=== PATIENT | male | born 1950 | race Caucasian/White ===

== ENCOUNTER → 2017-08-28 08:39 | Outpatient (CLI) | payer MEDICARE, SELFPAY ==
[2017-08-28 10:03] LABS: Hemoglobin 16.2 g/dl (13.0-16.5); Mean Corp Hgb Conc 33.1 g/gl (32-36); Mean Corpuscular Hgb 32.7 pg (27.0-32.0); Mean Corpuscular Volume 98.8 fL (80-94); Mean Platelet Vol. 11.1 fl (6.2-12.0); Platelet Count 200 K/mm3 (150-450); RBC Distribution Width CV 12.7 % (11.6-14.6); RBC Distribution Width SD 46.1 fl (35.1-43.9); Red Blood Count 4.96 M/mm3 (4.6-6.2); White Blood Count 6.1 K/mm3 (4.4-11.0)
[2017-08-28 10:11] LABS: Scan Indicated on CBC? Y/N NO
[2017-08-28 10:15] LABS: Anion Gap 8 (5-15); BUN 18 mg/dL (7-18); BUN/Creat Ratio 12.2 RATIO (10-20); Calcium,Total 8.9 mg/dL (8.5-10.1); Chloride 109 mmol/L (98-107); Creatinine, Serum 1.47 mg/dL (0.70-1.30); EST Glomerular Filtration Rate 50 mL/min (>60); Est Glom Filt Rate - Afr Amer 61 mL/min (>60); Glucose 95 mg/dL (74-106); Sodium Level 141 mmol/L (136-145); Thyroid Stim Hormone (TSH) 1.67 uIU/mL (0.358-3.74)
== END ==
PROVIDERS: Family Provider Family Medicine; PCP Family Medicine; Visit Provider Family Medicine
DX: I10 Essential (primary) hypertension (principal); R60.0 Localized edema
CPT/HCPCS: 36415; 80048; 84443; 85027

== ENCOUNTER → 2017-12-25 09:40 | Outpatient (CLI) | payer MEDICARE, SELFPAY ==
[2017-12-25 12:18] LABS: Anion Gap 10 (5-15); BUN 19 mg/dL (7-18); BUN/Creat Ratio 12.1 RATIO (10-20); Calcium,Total 9.1 mg/dL (8.5-10.1); Chloride 107 mmol/L (98-107); Creatinine, Serum 1.57 mg/dL (0.70-1.30); EST Glomerular Filtration Rate 47 mL/min (>60); Est Glom Filt Rate - Afr Amer 57 mL/min (>60); Glucose 90 mg/dL (74-106); Potassium 3.9 mmol/L (3.5-5.1); Sodium Level 142 mmol/L (136-145)
== END ==
PROVIDERS: Family Provider Family Medicine; PCP Family Medicine; Visit Provider Family Medicine
DX: I10 Essential (primary) hypertension (principal)
CPT/HCPCS: 36415; 80048

== ENCOUNTER → 2018-05-14 10:09 | Outpatient (CLI) | payer MEDICARE, SELFPAY ==
[2018-05-14 12:21] LABS: ALB/GLOB Ratio 1.4 RATIO (0.9-2.4); AST(SGOT) 21 U/L (15-37); Alanine Aminotransfer ALT/SGPT 32 U/L (16-61); Albumin, Serum 4.2 g/dL (3.2-5.0); Alkaline Phosphatase 51 U/L (45-117); Anion Gap 10 (5-15); BUN 19 mg/dL (7-18); BUN/Creat Ratio 12.5 RATIO (10-20); Calcium,Total 8.9 mg/dL (8.5-10.1); Chloride 107 mmol/L (98-107); Creatinine, Serum 1.52 mg/dL (0.70-1.30); EST Glomerular Filtration Rate 48 mL/min (>60); Est Glom Filt Rate - Afr Amer 59 mL/min (>60); Globulin 3.1 g/dL (2.2-4.2); Glucose 94 mg/dL (74-106); PSA,Total- Diagnostic 1.59 ng/mL (0.0-4.0); Potassium 4.3 mmol/L (3.5-5.1); Protein, Total 7.3 g/dL (6.4-8.2); Sodium Level 140 mmol/L (136-145)
== END ==
PROVIDERS: Family Provider Family Medicine; PCP Family Medicine; Visit Provider Family Medicine
DX: I10 Essential (primary) hypertension (principal); Z12.5 Encounter for screening for malignant neoplasm of prostate
CPT/HCPCS: 36415; 80053; 84153

== ENCOUNTER → 2018-09-15 | Outpatient (CLI) | payer MEDICARE, SELFPAY ==
[2018-09-15 13:00] LABS: Anion Gap 5 (5-15); BUN 18 mg/dL (7-18); BUN/Creat Ratio 12.2 RATIO (10-20); Calcium,Total 8.8 mg/dL (8.5-10.1); Chloride 109 mmol/L (98-107); Cholesterol 145 mg/dL (200); Creatinine, Serum 1.47 mg/dL (0.70-1.30); EST Glomerular Filtration Rate 50 mL/min (>60); Est Glom Filt Rate - Afr Amer 61 mL/min (>60); Glucose 91 mg/dL (74-106); High Density Lipoprotein 45 mg/dL; Potassium 4.1 mmol/L (3.5-5.1); Sodium Level 139 mmol/L (136-145); Triglycerides 93 mg/dL; Very Low Density Lipoprotein 19 mg/dL (5-40)
== END | disposition home or self-care (01) ==
PROVIDERS: Family Provider Family Medicine; PCP Family Medicine; Referring Provider Family Medicine; Visit Provider Family Medicine
DX: E78.2 Mixed hyperlipidemia (principal); N18.9 Chronic kidney disease, unspecified
CPT/HCPCS: 36415; 80048; 80061

== ENCOUNTER → 2019-01-12 | Outpatient (CLI) | payer MEDICARE, SELFPAY ==
[2019-01-12 12:40] LABS: Anion Gap 7 (5-15); BUN 17 mg/dL (7-18); BUN/Creat Ratio 10.8 RATIO (10-20); Calcium,Total 9.4 mg/dL (8.5-10.1); Chloride 110 mmol/L (98-107); Creatinine, Serum 1.57 mg/dL (0.70-1.30); EST Glomerular Filtration Rate 47 mL/min (>60); Est Glom Filt Rate - Afr Amer 56 mL/min (>60); Glucose 105 mg/dL (74-106); Potassium 4.3 mmol/L (3.5-5.1); Sodium Level 142 mmol/L (136-145)
== END | disposition home or self-care (01) ==
LOC: MFPLAB 10:36
PROVIDERS: Family Provider Family Medicine; PCP Family Medicine; Referring Provider Family Medicine; Visit Provider Family Medicine
DX: I10 Essential (primary) hypertension (principal)
CPT/HCPCS: 36415; 80048

== ENCOUNTER → 2019-05-18 10:54 | Outpatient (CLI) | payer MEDICARE, SELFPAY ==
[2019-05-18 12:48] LABS: Anion Gap 3 (5-15); BUN 19 mg/dL (7-18); BUN/Creat Ratio 12.8 RATIO (10-20); Calcium,Total 9.4 mg/dL (8.5-10.1); Chloride 109 mmol/L (98-107); Creatinine, Serum 1.48 mg/dL (0.70-1.30); EST Glomerular Filtration Rate 50 mL/min (>60); Est Glom Filt Rate - Afr Amer 60 mL/min (>60); Glucose 104 mg/dL (74-106); Potassium 4.4 mmol/L (3.5-5.1); Sodium Level 140 mmol/L (136-145)
== END ==
PROVIDERS: Family Provider Family Medicine; PCP Family Medicine; Referring Provider Family Medicine; Visit Provider Family Medicine
DX: N18.9 Chronic kidney disease, unspecified (principal)
CPT/HCPCS: 36415; 80048

== ENCOUNTER → 2019-09-15 09:36 | Outpatient (CLI) | payer MEDICARE, SELFPAY ==
[2019-09-15 12:27] LABS: Anion Gap 6 (5-15); BUN 19 mg/dL (7-18); BUN/Creat Ratio 13.2 RATIO (10-20); Calcium,Total 9.1 mg/dL (8.5-10.1); Chloride 109 mmol/L (98-107); Creatinine, Serum 1.44 mg/dL (0.70-1.30); EST Glomerular Filtration Rate 51 mL/min (>60); Est Glom Filt Rate - Afr Amer 62 mL/min (>60); Glucose 99 mg/dL (74-106); PSA,Total - Annual Screen 1.37 ng/mL (0.00-4.00); Potassium 4.2 mmol/L (3.5-5.1); Sodium Level 140 mmol/L (136-145)
== END ==
PROVIDERS: PCP Family Medicine; Visit Provider Family Medicine
DX: I10 Essential (primary) hypertension (principal); Z12.5 Encounter for screening for malignant neoplasm of prostate
CPT/HCPCS: 36415; 80048; 84153; G0103

== ENCOUNTER → 2020-01-19 09:35 | Outpatient (CLI) | payer MEDICARE, SELFPAY ==
[2020-01-19 12:57] LABS: ALB/GLOB Ratio 1.1 RATIO (0.9-2.4); AST(SGOT) 20 U/L (15-37); Alanine Aminotransfer ALT/SGPT 28 U/L (16-61); Albumin, Serum 4.1 g/dL (3.2-5.0); Alkaline Phosphatase 50 U/L (45-117); Anion Gap 5 (5-15); BUN 18 mg/dL (7-18); Calcium,Total 9.1 mg/dL (8.5-10.1); Chloride 108 mmol/L (98-107); Cholesterol 155 mg/dL (200); Creatinine, Serum 1.38 mg/dL (0.70-1.30); EST Glomerular Filtration Rate 54 mL/min (>60); Est Glom Filt Rate - Afr Amer 65 mL/min (>60); Globulin 3.6 g/dL (2.2-4.2); Glucose 100 mg/dL (74-106); High Density Lipoprotein 44 mg/dL; Potassium 3.9 mmol/L (3.5-5.1); Protein, Total 7.7 g/dL (6.4-8.2); Sodium Level 138 mmol/L (136-145); Triglycerides 162 mg/dL; Very Low Density Lipoprotein 32 mg/dL (5-40)
== END ==
PROVIDERS: PCP Family Medicine; Referring Provider Family Medicine; Visit Provider Family Medicine
DX: I10 Essential (primary) hypertension (principal)
CPT/HCPCS: 36415; 80053; 80061

== ENCOUNTER → 2020-05-30 12:22 | Outpatient (CLI) | payer MEDICARE, SELFPAY ==
[2020-05-30 15:36] LABS: ALB/GLOB Ratio 1.2 RATIO (0.9-2.4); AST(SGOT) 22 U/L (15-37); Alanine Aminotransfer ALT/SGPT 36 U/L (16-61); Albumin, Serum 4.2 g/dL (3.2-5.0); Alkaline Phosphatase 53 U/L (45-117); Anion Gap 5 (5-15); BUN 19 mg/dL (7-18); BUN/Creat Ratio 12.3 RATIO (10-20); Calcium,Total 9.1 mg/dL (8.5-10.1); Chloride 107 mmol/L (98-107); Cholesterol 153 mg/dL (200); Creatinine, Serum 1.54 mg/dL (0.70-1.30); EST Glomerular Filtration Rate 47 mL/min (>60); Est Glom Filt Rate - Afr Amer 57 mL/min (>60); Globulin 3.5 g/dL (2.2-4.2); Glucose 102 mg/dL (74-106); High Density Lipoprotein 47 mg/dL; Protein, Total 7.7 g/dL (6.4-8.2); Sodium Level 138 mmol/L (136-145); Triglycerides 135 mg/dL; Very Low Density Lipoprotein 27 mg/dL (5-40)
== END ==
PROVIDERS: PCP Family Medicine; Referring Provider Family Medicine; Visit Provider Family Medicine
DX: I10 Essential (primary) hypertension (principal); R73.01 Impaired fasting glucose
CPT/HCPCS: 36415; 80053; 80061

== ENCOUNTER 2020-08-22 10:24 | Day surgery (SDC) | payer MEDICARE, SELFPAY ==
--- NOTE | 2020-08-21 09:01 | EKG12_ITS ---
Test Reason : PREOP Blood Pressure : / mmHG Vent. Rate : 083 BPM Atrial Rate : 083 BPM P-R Int : 160 ms QRS Dur : 090 ms QT Int : 368 ms P-R-T Axes : 047 006 004 degrees QTc Int : 432 ms Normal sinus rhythm Left ventricular hypertrophy Abnormal ECG Confirmed by BRITTNEE CHILD, ANGELINA ([id number]), publications editor CUCA BRIZUELA ([id number]) on 08/21/2020 2:07:28 PM Referred By: Kinza Elizondo Confirmed By:ANGELINA BEAULIEU MD
[2020-08-21 10:35] LABS: Hematocrit 52.7 % (40-54); Hemoglobin 17.4 g/dL (13.0-16.5); Mean Corpuscular Hgb 32.3 pg (27.0-32.0); Mean Platelet Vol. 11.3 fl (6.2-12.0); Platelet Count 214 K/mm3 (150-450); RBC Distribution Width SD 43.6 fl (35.1-43.9); Red Blood Count 5.38 M/mm3 (4.6-6.2); White Blood Count 6.3 K/mm3 (4.4-11.0)
[2020-08-21 11:10] LABS: Anion Gap 7 (5-15); BUN 19 mg/dL (7-18); Calcium,Total 9.2 mg/dL (8.5-10.1); Chloride 107 mmol/L (98-107); Creatinine, Serum 1.27 mg/dL (0.70-1.30); EST Glomerular Filtration Rate 59 mL/min (>60); Est Glom Filt Rate - Afr Amer 72 mL/min (>60); Glucose 97 mg/dL (74-106); Potassium 3.8 mmol/L (3.5-5.1); Sodium Level 139 mmol/L (136-145)
--- NOTE | 2020-08-21 16:00 | PCM.HP.BLA ---
History and Physical Date of Admission: 08/21/20 HISTORY AND PHYSICAL ? Iron Powers 1950 ? ? REFERRING PHYSICIAN: Speedy Cantrell, * ? CHIEF COMPLAINT: No chief complaint on file. ? HPI: The patient is a pleasant 70 year old male with a complaint of right groin bulge and discomfort. He had a previous right inguinal hernia repair in the '80s, unknown if mesh was placed. He had a left inguinal hernia repair at 1 1/2 years of age. He has noted the bulge for several months and notes discomfort in the area. ? ? PAST MEDICAL HISTORY ? Calculus of ureter 1981 ? basket extraction ? Diverticulosis ? ? Essential hypertension, benign ? ? Irritable bowel syndrome ? ? Rosacea ? ? TIA (transient ischemic attack) 2016 ? PAST SURGICAL HISTORY ? COLONOSCOP W/ OR W/O BRSH SPEC ? 06/08/01 ? diverticulosis ? HAND SURGERY HX ? 2018 ? trigger finger ? [id number]-[id number] REPLACE/BOTH COMPART Left 02/11/2017 ? PAST SURGICAL HISTORY OF ? 1981 ? basket retrieval re: stone (right ureter) ? REPAIR ING HERNIA,5+Y/O,REDUCIBL ? child ? Hernia repair, inguinal ? REPAIR ING HERNIA,5+Y/O,REDUCIBL ? adult ? Hernia repair, inguinal ? ? Current Outpatient Medications ? acetaminophen/dp-hydram hcl(TYLENOL PM EXTRA STRENGTH 25 MG-500 MG TAB) two tablets at bedtime ? losartan (COZAAR) 100 mg tablet Take 100 mg by mouth once daily. ? furosemide (LASIX) 20 mg tablet Take 40 mg by mouth once daily. ? doxycycline monohydrate (MONODOX) 50 mg capsule Take 50 mg by mouth. ? TRULANCE 3 mg tablet Take 3 mg by mouth once daily. ? ELIQUIS 5 mg tab(s) Take 5 mg by mouth twice daily. ? simvastatin (ZOCOR) 20 mg tablet Take 20 mg by mouth once daily. ? THERAPEUTIC MULTIVITAMIN TAB Take one(1) tablet daily. ? ALLERGIES: Atenolol ? PERSONAL HISTORY: Social History ? Tobacco Use ? Smoking status: Never Smoker Substance Use Topics ? Alcohol use: No ? Drug use: No ? FAMILY HISTORY Problem Relation Age of Onset ? other (HTN) Mother ? ? Cancer Paternal Grandfather ? ? Cancer Daughter ? ? ovarian. 2004. age 29. ? Diabetes Other ? ? grandparents only ? Coronary Artery Disease Brother ? ? non-smoker ? ? REVIEW OF SYSTEMS: General - denies fevers, denies anorexia, denies weight loss Cardiovascular - denies chest pain, denies history of MA Pulmonary - had HENRY uses CPAP, denies shortness of breath, denies coughing up blood Gastrointestinal - has constipation but controlled with medication, takes occasional TUMS for acid reflux, has known hemorrhoids, denies abdominal pain, denies hematemesis, denies blood in stools Neurological - had previous TIA of unknown etiology and thus on eliquis, denies seizures, denies chronic numbness/weakness of extremities, denies chronic headaches Genitourinary - had kidney stones, denies burning with urination, denies blood in urine, denies prostate problems Hematological - on eliquis, denies spontaneous/prolonged bleeding Skin - denies nonhealing skin wounds Musculoskeletal - had left knee replaced Endocrine - denies diabetes, no thyroid problems Psychological ? denies hallucinations ? ? PHYSICAL EXAMINATION: General: The patient is 70 year old male, well nourished, well hydrated in no acute distress. The patient is oriented to time, place, and person. VITALS: Pulse 95, temperature 36.9 ?C (98.5 ?F), height 165.1 cm (5' 5), weight 109.4 kg (241 lb 3.2 oz), SpO2 97 %. Body mass index is 40.14 kg/m?. Head ? Normocephalic. EOM intact with sclera clear and no icterus noted. Wearing glasses Neck - supple with no jugular venous distention noted. Trachea is midline. Lungs ? clear to auscultation. Normal breath sounds. No rales/rhonchi/wheezing noted. No labored breathing noted, such as retractions. No cough heard. Heart ? normal S1 and S2 auscultated. No rubs/clicks/murmurs noted. Regular rate. Abdomen ? soft and benign. Normal bowel sounds. No abdominal bruits noted. Difficult to determine if any masses due to body habitus Genitalia ? normal male phallus, testes in normal anatomical position and no masses noted, right inguinal hernia noted - reducible, no left inguinal hernias noted even with valsalva-like maneuvers but may have weak fascia, large amount of peripubic adipose tissue Extremities ? no calf tenderness noted. No pitting edema noted. Skin ? normal skin integrity. Neurological ? gait normal, no focal deficits noted. Psych ? calm and appropriate ? ? IMPRESSION: right inguinal hernia ? PLAN: I have discussed the above with the patient. I have offered repair of right inguinal hernia repair with mesh. I have explained the procedure to the patient. I have counseled the patient as to the risks of the procedure, including but not limited to: infection, bleeding, injury to any blood vessels/nerves, scar tissue, injury to any intraabdominal organs, injury to bowel/bladder, injury to the spermatic cord and/or testicle, recurrence of hernia, chronic groin pain,, wound infections, complications of anesthesia, etc. ? the patient understands. ? The patient was offered a surgery/procedure . The provider and patient have discussed in detail the risk of exposure to and/or potential harm posed by the COVID-19 virus with having a surgery/procedure at this time versus the risk of? delaying the surgery/procedure. It is not possible to know either the risk of delaying the surgery or procedure or chance of getting an infection with perfect accuracy, but a joint decision was made between the patient and the provider ?to proceed at this time with the scheduled surgery/procedure. ? The patient wishes to proceed. He wishes to have surgery at [facility]. . I have answered all questions to the patient?s satisfaction and the patient has no further questions. .
[2020-08-22] VITALS (8 sets, daily range): BP systolic 147–178; BP diastolic 79–108; PULSE 76–92; RESP 16–18; TEMP 36.1–36.8; O2SAT 93–98; BMI 39.1
[2020-08-22] MEDS: Lactated Ringers 1,000 ML 75 ML IV ×2 (07:00→14:13)
--- NOTE | 2020-08-22 11:34 | DCINST_ITS ---
Discharge Diet: No Restrictions - drink plenty of fluids Weight Bearing Status: Full weight bearing Lifting Restrictions: no lifting greater than 40 pounds for at least one month Additional Instructions: Recommended pain control regimen - May take 600 mg ibuprofen (Motrin) and then in 3-4 hours, may take 650 mg acetaminophen (Tylenol), then in 3-4 hours may take 600 mg ibuprofen, then in 3- 4 hours may take 650 mg acetaminophen and so on for 2-3 days May take narcotic pain medication for pain that is not controlled by above and at night for comfort through the night Leave dressings in place May get dressings wet in shower - do not scrub in the area and pat dry Do not soak - no tub baths/swimming For hernia surgery - Swelling and bruising will occur in the area of the incision and also the scrotum Ice packs applied to the area will help, apply as long as tolerated and for your comfort Also can elevate scrotum by lying in a Lazy-boy chair position with legs up and place a folded towel across your upper thighs, place scrotum on top of towel and this will help drain the extra fluid from the scrotum back into your torso Please call for a follow up appointment at the office to be seen in 1-2 weeks for a date and time available at your convenience. Call . Allergies/Adverse Reactions: Allergies atenolol Adverse Reaction (Verified 08/22/20 10:43) Other Medications to take at Discharge Multivitamins,Therapeutic [Multivitamin] 1 tablet PO DAILY 05/20/13 Simvastatin [Zocor] 20 mg PO QHS 05/20/13 Apixaban [Eliquis] 5 mg PO BID #60 tablet 04/21/15 Acetaminophen [Tylenol Extra Strength] 500 - 1,000 mg PO Q6H PRN PRN 08/17/20 Acetaminophen/Diphenhydramine [Tylenol Pm Ex-Strength Caplet] 2 each PO QHS 08/17/20 Calcium Carbonate [Tums] 500 mg PO PRN PRN 08/17/20 Doxycycline 50 mg PO DAILY 08/17/20 Fluticasone 0.05% [Flonase Nasal Mary Esther] 1 spray NASAL DAILY PRN 08/17/20 Furosemide 40 mg PO DAILY 08/17/20 Losartan Potassium [Cozaar] 100 mg PO DAILY 08/17/20 Plecanatide [Trulance] 3 mg PO DAILY 08/17/20 Primary Care Physician: Abisai Cantrell MD [Primary Care Provider] - Test Results: Test results from this visit will be discussed in further detail at your follow- up appointment, if applicable.
[2020-08-22] MEDS: Cefazolin 2 GM in 0.9% Normal Saline 100 ML IV (11:42)
--- NOTE | 2020-08-22 13:09 | PCM.OPRPT ---
Report of Operation Date of Procedure: 08/22/20 Pre-Operative Diagnosis: recurrent right inguinal hernia - direct Post-Operative Diagnosis: same Surgery/Procedure Performed:: repair of recurrent right inguinal hernia with mesh Description of Surgical Findings:: direct inguinal hernia noted - no indirect hernia, no femoral hernia noted Type of Anesthesia:: General Anesthesiologist: Elijah Alcantar Specimen's removed: none Estimated Blood Loss (mL): < 10 ml Fluids Replaced: 900 ml RL Description of Procedure: After informed consent was obtained, patient was brought to the Operating Room. Appropriate time out protocol was followed. The patient was placed in the supine position. The patient was then placed under anesthesia by the anesthesia provider. The lower torso and the right groin area and genitalia were then prepped with a surgical skin preparation and appropriate sterile surgical drapes were placed. The anatomical landmarks were identified and after anesthetizing the skin and subcutaneous tissues with 0.25% Marcaine with epinephrine, a transverse skin incision was made above the level of the internal inguinal ring. The subcutaneous tissues were then sharply dissected down to the external oblique fascia and any hemorrhage was adequately controlled with electrocoagulation. The external oblique was then divided obliquely along the fibers and a muscle-splitting incision was then made to divide the internal oblique musculature and fascia. The transversalis fascia was then identified and was then incised parallel to the inferior hypogastric vessels. The preperitoneal space was then entered. Blunt dissection was then done to identify out Rizwan's ligament, the pubic tubercle and a large area surrounding these landmarks for placement of the mesh. The iliac vessels were identified. There was scar tissue and adhesions in this area due to previous surgery and therefore this took some time. The patient was not noted to have a femoral hernia. Within Hasselbach's triangle, there was a fascial defect noted. The hernia was reduced back into the preperitoneal cavity. The spermatic cord was identified and isolated to prevent its injury. There was no internal hernia sac identified. This peritoneum was from spermatic cord by blunt dissection. Blunt dissection continued to separate the spermatic cord from the sac and this was done proximally until the bifurcation of the gonadal vessels and vans deferens was noted. A large right sided Bard 3D mesh was then positioned into the preperitoneal space. It was placed such that the medial aspect would be overlapping medial to the pubic tubercle and the inferior edge would be placed inferior to Rizwan's ligament. The remainder of the mesh was flattened out against the anterior abdominal wall. The mesh was tacked medially to the pubic tubercle and also another tack was placed along rizwan's ligament. The mesh also covered the wound opening in the preperitoneal space. The internal oblique and transversalis fascia was then reapproximated using interrupted 0 prolene suture. One of the sutures was used to lock the mesh into position and secure it to the anterior abdominal wall. Hemostasis was carefully controlled with electrocoagulation. The external oblique fascia was then reapproximated using a running 0 Vicryl suture. This was carefully done to avoid any entrapment of blood vessels/nerves. Quinn's fascia was closed using Vicryl suture in an interrupted simple fashion. The skin incision was closed with 4-0 Monocryl in a running subcuticular fashion. Cavilon and Steri-Strips were used to reinforce the skin closure and appropriate sterile dressing was applied. Sponge, needle, and instrument count were verified and correct at the time of skin closure. The patient was brought to the Recovery Room in stable condition. Grafts/Implants Used: Bard 3D Max mesh, Lot [id number], exp 2024-6, covidien 5mm tack [id number] - Complications none noted - Admit VTE Documentation VTE Present on Admission: Yes VTE Mechan Device Prophylaxis: SCD's
[2020-08-22] MEDS: Bupivacaine 0.25% 30 ML Vial (13:12)
== END 2020-08-22 16:06 | disposition home or self-care (01) ==
LOC: SDC 10:25 → AC 10:26
PROVIDERS: Anesthesiology; PCP Family Medicine; Referring Provider Surgery; Visit Provider Surgery
PROC: (CPT 49520; principal; 2020-08-22 11:45)
DX: K40.91 Unilateral inguinal hernia, without obstruction or gangrene, recurrent (principal); I10 Essential (primary) hypertension; K58.9 Irritable bowel syndrome, unspecified; K21.9 Gastro-esophageal reflux disease without esophagitis; E78.00 Pure hypercholesterolemia, unspecified; Z86.73 Personal history of transient ischemic attack (TIA), and cerebral infarction without residual deficits; Z79.899 Other long term (current) drug therapy; Z79.01 Long term (current) use of anticoagulants
CPT/HCPCS: 00830; 49520; 36415; 80048; 85027; 87426; 93005; C9803; J7120; C1781; J2405

== ENCOUNTER → 2021-01-29 11:27 | Outpatient (CLI) | payer MEDICARE, SELFPAY ==
[2021-01-29 15:16] LABS: Anion Gap 7 (5-15); BUN 16 mg/dL (7-18); BUN/Creat Ratio 12.3 RATIO (10-20); Calcium,Total 9.3 mg/dL (8.5-10.1); Chloride 108 mmol/L (98-107); Cholesterol 148 mg/dL (200); EST Glomerular Filtration Rate 58 mL/min (>60); Est Glom Filt Rate - Afr Amer 70 mL/min (>60); Glucose 112 mg/dL (74-106); High Density Lipoprotein 48 mg/dL; PSA,Total - Annual Screen 1.26 ng/mL (0.00-4.00); Potassium 3.8 mmol/L (3.5-5.1); Sodium Level 139 mmol/L (136-145); Triglycerides 113 mg/dL; Very Low Density Lipoprotein 23 mg/dL (5-40)
== END ==
PROVIDERS: PCP Family Medicine; Visit Provider Family Medicine
DX: N18.30 Chronic kidney disease, stage 3 unspecified (principal); E78.5 Hyperlipidemia, unspecified; Z12.5 Encounter for screening for malignant neoplasm of prostate
CPT/HCPCS: 36415; 80048; 80061; 84153; G0103

== ENCOUNTER → 2021-04-24 15:07 | Outpatient (CLI) | payer MEDICARE, SELFPAY ==
[2021-04-24 18:00] LABS: Anion Gap 4 (5-15); BUN 13 mg/dL (7-18); BUN/Creat Ratio 9.6 RATIO (10-20); Calcium,Total 8.9 mg/dL (8.5-10.1); Chloride 107 mmol/L (98-107); Creatinine, Serum 1.36 mg/dL (0.70-1.30); EST Glomerular Filtration Rate 55 mL/min (>60); Est Glom Filt Rate - Afr Amer 66 mL/min (>60); Glucose 117 mg/dL (74-106); Potassium 3.9 mmol/L (3.5-5.1); Sodium Level 140 mmol/L (136-145)
== END ==
PROVIDERS: PCP Family Medicine; Visit Provider Family Medicine
DX: I10 Essential (primary) hypertension (principal)
CPT/HCPCS: 36415; 80048

== ENCOUNTER 2021-07-30 10:51 | Outpatient (CLI) | payer MEDICARE, SELFPAY ==
[2021-07-30 12:29] LABS: ALB/GLOB Ratio 1.2 RATIO (0.9-2.4); AST(SGOT) 23 U/L (15-37); Alanine Aminotransfer ALT/SGPT 35 U/L (16-61); Albumin, Serum 4.2 g/dL (3.2-5.0); Alkaline Phosphatase 62 U/L (45-117); Anion Gap 5 (5-15); BUN 13 mg/dL (7-18); BUN/Creat Ratio 9.6 RATIO (10-20); Calcium,Total 9.4 mg/dL (8.5-10.1); Chloride 108 mmol/L (98-107); Cholesterol 135 mg/dL (200); Creatinine, Serum 1.36 mg/dL (0.70-1.30); EST Glomerular Filtration Rate 55 mL/min (>60); Est Glom Filt Rate - Afr Amer 66 mL/min (>60); Globulin 3.4 g/dL (2.2-4.2); Glucose 103 mg/dL (74-106); High Density Lipoprotein 46 mg/dL; Potassium 3.8 mmol/L (3.5-5.1); Protein, Total 7.6 g/dL (6.4-8.2); Sodium Level 139 mmol/L (136-145); Triglycerides 122 mg/dL; Very Low Density Lipoprotein 24 mg/dL (5-40)
== END 2021-07-30 23:59 | disposition home or self-care (01) ==
LOC: MFPLAB 10:52
PROVIDERS: PCP Family Medicine; Referring Provider Family Medicine; Visit Provider Family Medicine
DX: E78.5 Hyperlipidemia, unspecified (principal)
CPT/HCPCS: 36415; 80053; 80061

== ENCOUNTER → 2021-11-13 | Outpatient (CLI) | payer MEDICARE, SELFPAY ==
--- NOTE | 2021-11-13 10:30 | RAD_ITS ---
EXAM: XR SINUSES/PARANASAL COMPLETE, 3 OR MORE VIEWS CLINICAL INDICATION: ABNORMAL SMELL TECHNIQUE: Frontal, lateral and Negrete views of the sinuses and paranasal structures. This report was created using [employer] report generation technology. COMPARISON: None. FINDINGS: BONES/JOINTS: Unremarkable. The regional bones are grossly intact. SINUSES: Unremarkable. No significant mucosal thickening. There are no air-fluid levels. RAD/Sinuses min 3 Views IMPRESSION: Negative sinus series. Electronically Signed: Alejandro Travis MD at 17:24 EDT ,
== END | disposition home or self-care (01) ==
PROVIDERS: PCP Family Medicine; Referring Provider Family Medicine; Visit Provider Family Medicine
DX: R43.1 Parosmia (principal)
CPT/HCPCS: 70220

== ENCOUNTER → 2022-04-16 | Outpatient (CLI) | payer MEDICARE, SELFPAY ==
[2022-04-16 12:38] LABS: Anion Gap 4 (5-15); BUN 16 mg/dL (7-18); BUN/Creat Ratio 10.9 RATIO (10-20); Calcium,Total 9.4 mg/dL (8.5-10.1); Chloride 108 mmol/L (98-107); Creatinine, Serum 1.47 mg/dL (0.70-1.30); EST Glomerular Filtration Rate 50 mL/min (>60); Est Glom Filt Rate - Afr Amer 60 mL/min (>60); Glucose 103 mg/dL (74-106); Sodium Level 140 mmol/L (136-145)
== END | disposition home or self-care (01) ==
LOC: MFPLAB 10:53
PROVIDERS: PCP Family Medicine; Referring Provider Family Medicine; Visit Provider Family Medicine
DX: I10 Essential (primary) hypertension (principal)
CPT/HCPCS: 36415; 80048

== ENCOUNTER → 2022-06-18 | Outpatient (CLI) | payer MEDICARE, SELFPAY ==
[2022-06-18 15:27] LABS: ALB/GLOB Ratio 1.1 RATIO (0.9-2.4); AST(SGOT) 34 U/L (15-37); Alanine Aminotransfer ALT/SGPT 44 U/L (16-61); Albumin, Serum 4.2 g/dL (3.2-5.0); Alkaline Phosphatase 48 U/L (45-117); Anion Gap 9 (5-15); BUN 15 mg/dL (7-18); BUN/Creat Ratio 10.6 RATIO (10-20); Calcium,Total 9.3 mg/dL (8.5-10.1); Chloride 105 mmol/L (98-107); Cholesterol 131 mg/dL (200); Creatinine, Serum 1.41 mg/dL (0.70-1.30); EST Glomerular Filtration Rate 52 mL/min (>60); Est Glom Filt Rate - Afr Amer 63 mL/min (>60); Globulin 3.7 g/dL (2.2-4.2); Glucose 108 mg/dL (74-106); High Density Lipoprotein 55 mg/dL; PSA,Total - Annual Screen 1.42 ng/mL (0.00-4.00); Potassium 3.9 mmol/L (3.5-5.1); Protein, Total 7.9 g/dL (6.4-8.2); Sodium Level 139 mmol/L (136-145); Triglycerides 132 mg/dL; Very Low Density Lipoprotein 26 mg/dL (5-40)
[2022-06-18 15:50] LABS: Hemoglobin A1c 5.5 % (3.8-5.6)
== END | disposition home or self-care (01) ==
LOC: MFPLAB 12:11
PROVIDERS: PCP Family Medicine; Referring Provider Family Medicine; Visit Provider Family Medicine
DX: Z12.5 Encounter for screening for malignant neoplasm of prostate (principal); I63.9 Cerebral infarction, unspecified; I10 Essential (primary) hypertension
CPT/HCPCS: 36415; 80053; 80061; 83036; 84153; G0103

== ENCOUNTER → 2022-07-18 | Outpatient (CLI) | payer MEDICARE, SELFPAY ==
[2022-07-18 12:52] LABS: Anion Gap 10 (5-15); BUN 17 mg/dL (7-18); BUN/Creat Ratio 12.2 RATIO (10-20); Calcium,Total 9.7 mg/dL (8.5-10.1); Chloride 104 mmol/L (98-107); Creatinine, Serum 1.39 mg/dL (0.70-1.30); EST Glomerular Filtration Rate 53 mL/min (>60); Est Glom Filt Rate - Afr Amer 64 mL/min (>60); Glucose 114 mg/dL (74-106); Potassium 3.9 mmol/L (3.5-5.1); Sodium Level 139 mmol/L (136-145)
== END | disposition home or self-care (01) ==
LOC: MFPLAB 10:28
PROVIDERS: PCP Family Medicine; Referring Provider Family Medicine; Visit Provider Family Medicine
DX: I10 Essential (primary) hypertension (principal)
CPT/HCPCS: 36415; 80048

== ENCOUNTER → 2022-10-15 | Outpatient (CLI) | payer MEDICARE, SELFPAY ==
[2022-10-15 13:17] LABS: Vitamin D,25 Hydroxy 43.5 ng/mL
[2022-10-15 13:30] LABS: Anion Gap 8 (5-15); BUN 15 mg/dL (7-18); BUN/Creat Ratio 11.9 RATIO (10-20); Calcium,Total 9.3 mg/dL (8.5-10.1); Chloride 109 mmol/L (98-107); Cholesterol 120 mg/dL (200); Creatinine, Serum 1.26 mg/dL (0.70-1.30); EST Glomerular Filtration Rate 59 mL/min (>60); Est Glom Filt Rate - Afr Amer 72 mL/min (>60); Glucose 101 mg/dL (74-106); High Density Lipoprotein 45 mg/dL; Potassium 3.6 mmol/L (3.5-5.1); Sodium Level 140 mmol/L (136-145); Triglycerides 112 mg/dL; Very Low Density Lipoprotein 22 mg/dL (5-40)
== END | disposition home or self-care (01) ==
LOC: MFPLAB 11:35
PROVIDERS: PCP Family Medicine; Visit Provider Family Medicine
DX: N18.30 Chronic kidney disease, stage 3 unspecified (principal)
CPT/HCPCS: 36415; 80048; 80061; 82306

== ENCOUNTER → 2023-01-15 | Outpatient (CLI) | payer MEDICARE, SELFPAY ==
[2023-01-15 15:18] LABS: Hematocrit 49.3 % (40-54); Hemoglobin 16.1 g/dL (13.0-16.5); Mean Corp Hgb Conc 32.7 g/dL (32-36); Mean Corpuscular Hgb 32.5 pg (27.0-32.0); Mean Corpuscular Volume 99.4 fL (80-94); Mean Platelet Vol. 11.7 fl (6.2-12.0); Platelet Count 219 K/mm3 (150-450); RBC Distribution Width CV 12.2 % (11.6-14.6); RBC Distribution Width SD 44.6 fl (35.1-43.9); Red Blood Count 4.96 M/mm3 (4.6-6.2)
[2023-01-15 15:39] LABS: PTHIN 117.2 pg/mL (18.4-80.1)
[2023-01-15 16:34] LABS: Anion Gap 8 (5-15); BUN 16 mg/dL (7-18); BUN/Creat Ratio 12.7 RATIO (10-20); Calcium,Total 8.8 mg/dL (8.5-10.1); Chloride 109 mmol/L (98-107); Creatinine, Serum 1.26 mg/dL (0.70-1.30); EST Glomerular Filtration Rate 59 mL/min (>60); Est Glom Filt Rate - Afr Amer 72 mL/min (>60); Glucose 103 mg/dL (74-106); Sodium Level 138 mmol/L (136-145)
== END | disposition home or self-care (01) ==
LOC: MFPLAB 12:09
PROVIDERS: PCP Family Medicine; Visit Provider Family Medicine
DX: N18.30 Chronic kidney disease, stage 3 unspecified (principal)
CPT/HCPCS: 36415; 80048; 83970; 85027

== ENCOUNTER → 2023-07-16 | Outpatient (CLI) | payer MEDICARE, SELFPAY ==
[2023-07-16 12:26] LABS: Hematocrit 48.5 % (40-54); Mean Corpuscular Hgb 31.9 pg (27.0-32.0); Mean Corpuscular Volume 96.8 fL (80-94); Mean Platelet Vol. 11.3 fl (6.2-12.0); Platelet Count 226 K/mm3 (150-450); RBC Distribution Width CV 12.2 % (11.6-14.6); RBC Distribution Width SD 43.8 fl (35.1-43.9); Red Blood Count 5.01 M/mm3 (4.6-6.2); White Blood Count 6.7 K/mm3 (4.4-11.0)
[2023-07-16 13:01] LABS: Vitamin D,25 Hydroxy 37.9 ng/mL
[2023-07-16 13:12] LABS: ALB/GLOB Ratio 1.2 RATIO (0.9-2.4); AST(SGOT) 21 U/L (15-37); Alanine Aminotransfer ALT/SGPT 31 U/L (16-61); Albumin, Serum 4.1 g/dL (3.2-5.0); Alkaline Phosphatase 41 U/L (45-117); Anion Gap 7 (5-15); BUN 18 mg/dL (7-18); Calcium,Total 9.3 mg/dL (8.5-10.1); Chloride 109 mmol/L (98-107); Cholesterol 137 mg/dL (200); Creatinine, Serum 1.29 mg/dL (0.70-1.30); EST Glomerular Filtration Rate 58 mL/min (>60); Est Glom Filt Rate - Afr Amer 70 mL/min (>60); Globulin 3.5 g/dL (2.2-4.2); Glucose 107 mg/dL (74-106); High Density Lipoprotein 45 mg/dL; Iron 113 ug/dL (65-175); PSA,Total - Annual Screen 1.36 ng/mL (0.00-4.00); Potassium 3.7 mmol/L (3.5-5.1); Protein, Total 7.6 g/dL (6.4-8.2); Sodium Level 139 mmol/L (136-145); Triglycerides 141 mg/dL; Very Low Density Lipoprotein 28 mg/dL (5-40)
[2023-07-16 14:22] LABS: PTHIN 56.6 pg/mL (18.4-80.1)
== END | disposition home or self-care (01) ==
LOC: MFPLAB 09:36
PROVIDERS: PCP Family Medicine; Visit Provider Family Medicine
DX: N18.30 Chronic kidney disease, stage 3 unspecified (principal); E78.5 Hyperlipidemia, unspecified; Z12.5 Encounter for screening for malignant neoplasm of prostate
CPT/HCPCS: 36415; 80053; 80061; 82306; 83540; 83970; 84153; 85027; G0103

== ENCOUNTER → 2024-01-22 | Outpatient (CLI) | payer MEDICARE, SELFPAY ==
[2024-01-22 15:57] LABS: Anion Gap 9 (5-15); BUN 17 mg/dL (7-18); BUN/Creat Ratio 13.8 RATIO (10-20); Calcium,Total 9.4 mg/dL (8.5-10.1); Chloride 104 mmol/L (98-107); Creatinine, Serum 1.23 mg/dL (0.70-1.30); EST Glomerular Filtration Rate 61 mL/min (>60); Est Glom Filt Rate - Afr Amer 74 mL/min (>60); Glucose 111 mg/dL (74-106); Potassium 4.1 mmol/L (3.5-5.1); Sodium Level 138 mmol/L (136-145)
[2024-01-22 16:08] LABS: Vitamin D,25 Hydroxy 36.6 ng/mL
== END | disposition home or self-care (01) ==
LOC: MFPLAB 11:14
PROVIDERS: PCP Family Medicine; Visit Provider Family Medicine
DX: N18.30 Chronic kidney disease, stage 3 unspecified (principal)
CPT/HCPCS: 36415; 80048; 82306

== ENCOUNTER → 2024-07-20 | Outpatient (CLI) | payer MEDICARE, SELFPAY ==
[2024-07-20 16:00] LABS: Hematocrit 46.8 % (40-54); Hemoglobin 15.6 g/dL (13.0-16.5); Mean Corp Hgb Conc 33.3 g/dL (32-36); Mean Corpuscular Hgb 32.4 pg (27.0-32.0); Mean Corpuscular Volume 97.3 fL (80-94); Mean Platelet Vol. 11.3 fl (6.2-12.0); Platelet Count 233 K/mm3 (150-450); RBC Distribution Width CV 12.4 % (11.6-14.6); RBC Distribution Width SD 44.7 fl (35.1-43.9); Red Blood Count 4.81 M/mm3 (4.6-6.2); White Blood Count 7.2 K/mm3 (4.4-11.0)
[2024-07-20 20:17] LABS: Anion Gap 14 (5-15); BUN 18 mg/dL (4-19); BUN/Creat Ratio 14.7 RATIO (10-20); Calcium,Total 9.5 mg/dL (7.6-11.0); Carbon Dioxide 22.1 mmol/L (21.0-32.0); Chloride 103 mmol/L (98-108); Cholesterol 132 mg/dL (<=200); Creatinine, Serum 1.22 mg/dL (0.70-1.20); EST Glomerular Filtration Rate 61 (>60); Glucose 103 mg/dL (70-99); High Density Lipoprotein 50 mg/dL; Low Density Lipoprotein Calc. 62 mg/dL; Potassium 3.8 mmol/L (3.3-5.1); Sodium Level 138 mmol/L (133-145); Triglycerides 100 mg/dL; Very Low Density Lipoprotein 20 mg/dL (5-40); cholesterol:hdl ratio screen 2.65
[2024-07-20 20:38] LABS: Iron 144 ug/dL (65-175)
[2024-07-20 20:39] LABS: Vitamin D,25 Hydroxy 40.9 ng/mL (30-100)
== END | disposition home or self-care (01) ==
PROVIDERS: PCP Family Medicine; Referring Provider Family Medicine; Visit Provider Family Medicine
DX: N18.30 Chronic kidney disease, stage 3 unspecified (principal); Z13.220 Encounter for screening for lipoid disorders
CPT/HCPCS: 36415; 80048; 80061; 82306; 83540; 85027